=== PATIENT | female | born 2000 | race Caucasian/White ===

== ENCOUNTER → 2018-10-20 | Outpatient (CLI) | payer OTHER | END | disposition home or self-care (01) | LOC: US 13:42 | PROC: BG44ZZZ Ultrasonography of Thyroid Gland (ICD-10-PCS; principal; 2018-10-20) | DX: E04.2 Nontoxic multinodular goiter (principal) ==

== ENCOUNTER 2019-03-10 21:26 | Emergency (ER) | payer OTHER ==
[~2019-03-10] VITALS: Ht 160 cm; Wt 58.1 kg
[2019-03-10 21:39] VITALS: BP 123/78; Ht 160 cm; Wt 58.1 kg
== END 2019-03-10 22:01 | disposition home or self-care (01) ==
LOC: ED 21:26
DX: H92.02 Otalgia, left ear (principal)

== ENCOUNTER → 2019-06-15 | Outpatient (CLI) | payer OTHER | END | disposition home or self-care (01) | LOC: US 08:41 | PROC: BW4GZZZ Ultrasonography of Pelvic Region (ICD-10-PCS; principal; 2019-06-15) | PROC: BH40ZZZ Ultrasonography of Right Breast (ICD-10-PCS; 2019-06-15) | DX: N63.0 Unspecified lump in unspecified breast (principal); N92.4 Excessive bleeding in the premenopausal period | CPT/HCPCS: 76642 ==